=== PATIENT | male | born 2000 | race Caucasian/White ===

== ENCOUNTER 2018-06-23 18:46 | Emergency (ER) | payer MEDICAID, OTHER ==
[2018-06-23 18:51] VITALS: RESP 18
[2018-06-23] MEDS ORDERED: Sodium Chloride 0.9% 1,000 ML IV ONE (19:07)
--- NOTE | 2018-06-23 19:09 | C.PDOC ---
History Of Present Illness 18 y/o male presents to the ER complaining of abdominal pain and vomiting x 1 day. Patient states that he developed generalized abdominal cramping and vomiting with associated brown watery diarrhea when he woke up in the morning today. Patient reports that he had 4 episodes of non-bilious non-bloody vomiting and 4-5 episodes of diarrhea. He was taking care of his younger brother who had stomach flu yesterday. Denies having back pain, urinary symptoms, testicular pain, CP, SOB, sore throat, or cough. Of note, patient is UTD with vaccinations except for flu. Time Seen by Provider: 06/23/18 19:00 Chief Complaint (Nursing): Abdominal Pain History Per: Patient History/Exam Limitations: no limitations Onset/Duration Of Symptoms: Days Current Symptoms Are (Timing): Still Present Severity: Moderate Past Medical History Reviewed: Historical Data, Nursing Documentation, Vital Signs Vital Signs: Last Vital Signs Temp 100.2 F H 06/23/18 18:48 Pulse 110 H 06/23/18 18:48 Resp 18 06/23/18 18:48 BP 97/64 L 06/23/18 18:48 Pulse Ox 99 06/23/18 18:48 - Medical History PMH: No Chronic Diseases Surgical History: No Surg Hx Family History: States: No Known Family Hx - Social History Hx Alcohol Use: Yes Hx Substance Use: No - Immunization History Hx Tetanus Toxoid Vaccination: No Hx Influenza Vaccination: No Hx Pneumococcal Vaccination: No Review Of Systems Except As Marked, All Systems Reviewed And Found Negative. Constitutional: Negative for: Fever, Chills Eyes: Negative for: Vision Change ENT: Negative for: Throat Pain Cardiovascular: Negative for: Chest Pain, Palpitations, Light Headedness Respiratory: Negative for: Cough, Shortness of Breath Gastrointestinal: Positive for: Nausea, Vomiting, Abdominal Pain. Negative for: Diarrhea Genitourinary: Negative for: Dysuria, Frequency, Incontinence, Hematuria Musculoskeletal: Negative for: Back Pain Skin: Negative for: Rash Neurological: Negative for: Weakness, Numbness, Headache, Dizziness Physical Exam - Physical Exam Appears: Non-toxic, No Acute Distress Skin: Normal Color, Warm, Dry Head: Atraumatic, Normacephalic Eye(s): bilateral: Normal Inspection, PERRL, EOMI Ear(s): Bilateral: Normal Nose: Normal Oral Mucosa: Moist Throat: Normal, No Erythema, No Exudate Neck: Normal ROM, Supple, No Other (no meningeal signs) Chest: Symmetrical Cardiovascular: Rhythm Regular Respiratory: Normal Breath Sounds, No Rales, No Rhonchi, No Wheezing Gastrointestinal/Abdominal: Bowel Sounds (normoactive), Soft, No Tenderness, No Distention, No Guarding, No Rebound Back: Normal Inspection, No CVA Tenderness Extremity: Normal ROM, Capillary Refill (<2s) Extremity: Bilateral: Atraumatic, No Pedal Edema, Normal Color And Temperature, Normal ROM Pulses: Left Radial: Normal, Right Radial: Normal Neurological/Psych: Oriented x3, Normal Speech, Normal Motor, Normal Sensation Gait: Steady ED Course And Treatment - Laboratory Results Result Diagrams: 06/23/18 19:33 06/23/18 19:33 O2 Sat by Pulse Oximetry: 99 (RA) Pulse Ox Interpretation: Normal Medical Decision Making Medical Decision Making: Plan: --Labs --UA --CXR --Pepcid IV --Toradol IV --Zofran IV --IV Fluids On initial exam, patient looks uncomfortable but nontoxic. No abdominal tenderness on exam. Patient reports resolution of symptoms after medication, ambulating around ED without difficulty. Asking for food. Labwork unremarkable CXR shows no active disease Patient tolerated gingerale and a turkey sandwich without difficulty. No vomiting or episodes of diarrhea in the ED. Advised to increase potassium intake through food for very mild hypokalemia. Will discharge home with prescription for zofran and advise to followup with PMD and return for new/worsening symptoms. Patient verbalized understanding and states he will followup as instructed. Diagnostic testing results and plan of care discussed with patient. Strict instructions given regarding prescription use, importance of followup, and signs/symptoms to return to ER including worsening pain, chest pain, SOB, or any other new/worsening symptoms. Pt verbalized understanding of discussion. Patient is A&Ox3, ambulating with steady gait, with vital signs stable for discharge. Disposition - Disposition Referrals: [facility] [Outside] Disposition: HOME/ ROUTINE Disposition Time: 20:46 Condition: IMPROVED Additional Instructions: Increase fluids Zofran every 8hours as needed for nausea Pepcid every 12 hours for nausea/pain Ibuprofen/Tylenol for fever Followup with primary within 2 days Return to ER with any new/worsening symptoms Prescriptions: Famotidine [Pepcid] 20 mg PO Q12H PRN #14 tab PRN Reason: Nausea/Vomiting Ondansetron ODT [Zofran ODT] 4 mg PO Q8H PRN #6 tab PRN Reason: Nausea/Vomiting Instructions: Viral Gastroenteritis, Adult (DC) Forms: General Discharge Instructions, [facility] (Uzbek), Work Excuse - Clinical Impression Clinical Impression: Abdominal pain, Nausea & vomiting - PA / [employer] / Resident Statement MD/DO has reviewed & agrees with the documentation as recorded. - Scribe Statement The provider has reviewed the documentation as recorded by the Paige Jackson Provider Attestation All medical record entries made by the Paige were at my direction and personally dictated by me. I have reviewed the chart and agree that the record accurately reflects my personal performance of the history, physical exam, medical decision making, and the department course for this patient. I have also personally directed, reviewed, and agree with the discharge instructions and disposition.
[2018-06-23 19:42] LABS: BASO % 0.3 % (0.0-2.0); EOS # 0.1 K/uL (0.0-0.7); EOS % 0.7 % (0.0-4.0); LYMPH # 0.5 K/uL (1.0-4.3); LYMPH % 6.9 % (20.0-40.0); MEAN CELL VOLUME 75.8 fL (80.0-94.0); MEAN CORPUSCULAR HEMOGLOBIN 24.5 pg (27.0-31.0); MEAN CORPUSCULAR HGB CONC 32.3 g/dL (33.0-37.0); MONO # 1.3 K/uL (0.0-0.8); NEUT % 76.1 % (50.0-75.0); NRBC % 0.2 % (0.0-2.0); PLATELET COUNT 200 K/uL (130-400); RBC 6.12 Mil/uL (4.40-5.90); RED CELL DISTRIBUTION WIDTH 13.7 % (11.5-14.5); SQUAMOUS EPITHIAL < 1 /hpf (0-5); URINE BACTERIA RARE (<OCC); URINE BILIRUBIN NEGATIVE (NEGATIVE); URINE BLOOD NEGATIVE (NEGATIVE); URINE CLARITY Clear (Clear); URINE GLUCOSE (UA) NORMAL (Normal); URINE LEUKOCYTE ESTERASE NEG Leu/uL (Negative); URINE PROTEIN 1+ mg/dL (NEGATIVE); WHITE BLOOD COUNT 7.9 K/uL (4.8-10.8)
[2018-06-23 19:43] LABS: URINE COLOR YELLOW (YELLOW)
[2018-06-23 19:51] LABS: ALB/GLOB RATIO 1.3 (1.0-2.1); ALT/SGPT 15 U/L (21-72); AST/SGOT 25 U/L (17-59); BLOOD UREA NITROGEN 17 mg/dL (9-20); CALCIUM 9.2 mg/dl (8.6-10.4); GFR NON-AFRICAN AMERICAN > 60; INR 1.3; LIPASE 63 U/L (23-300); PROTHROMBIN TIME 13.8 SECONDS (9.7-12.2)
[2018-06-23 19:57] LABS: BARBITURATES, UR NEGATIVE (NEGATIVE); BENZODIAZEPINES, UR NEGATIVE (NEGATIVE); OPIATES, UR NEGATIVE (NEGATIVE); PHENCYCLIDINE, UR NEGATIVE (NEGATIVE)
[2018-06-23 20:11] LABS: INFLUENZA A B NEGATIVE FOR FLU A/B (NEGATIVE)
[2018-06-23 20:16] LABS: LYMPHOCYTE 5 % (20-40); MONOCYTE 5 % (0-10); NEUTROPHIL 90 % (50-75); PLATELET ESTIMATE NORMAL (NORMAL); TOTAL CELLS COUNTED 100
[2018-06-23 20:47] VITALS: BP 108/63; PULSE 85; TEMP 99
[2018-06-23 21:34] VITALS: O2SAT 99
--- NOTE | 2018-06-24 08:20 | RAD ---
HISTORY: abd pain COMPARISON: None available. TECHNIQUE: Chest PA and lateral FINDINGS: LUNGS: No focal consolidation. Please note that chest x-ray has limited sensitivity for the detection of pulmonary masses. PLEURA: No significant pleural effusion identified. No definite pneumothorax . CARDIOVASCULAR: The cardiomediastinal silhouette appears within normal limits of size. No atherosclerotic calcification present. OSSEOUS STRUCTURES: No acute osseous abnormality identified. VISUALIZED UPPER ABDOMEN: Unremarkable. OTHER FINDINGS: None. IMPRESSION: No acute findings.
== END 2018-06-23 21:00 | disposition home or self-care (01) ==
LOC: C.ER 18:46
DX: R10.9 Unspecified abdominal pain (principal); R11.2 Nausea with vomiting, unspecified
CPT/HCPCS: 71046; 80053; 80324; 80345; 80346; 80349; 80353; 80358; 80361; 81001; 83690; 83992; 85025; 85610; 85730; 87070; 87430; 87804; 96361; 96374; 96375; 99285; J1885; J2405; J7030

== ENCOUNTER 2018-10-04 00:43 | Emergency (ER) | payer OTHER ==
[2018-10-04 01:03] VITALS: RESP 20
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
[2018-10-04 03:02] VITALS: TEMP 98.2
[2018-10-04 04:22] VITALS: BP 98/58; PULSE 71; O2SAT 99
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
== END 2018-10-04 04:22 | disposition home or self-care (01) ==
LOC: C.ER 00:43
DX: S00.83XA Contusion of other part of head, initial encounter (principal); S00.211A Abrasion of right eyelid and periocular area, initial encounter; Y08.89XA Assault by other specified means, initial encounter